=== PATIENT | male | born 1940 | race Caucasian/White ===

== ENCOUNTER → 2016-08-18 | Outpatient (CLI) | payer OTHER ==
[~2016-08-18] MED LIST: ACETAMINOPHEN325 M1 PO; ADULT LOW DOSE81 MG PO; ALLOPURINOL 10100 M1 PO; AMIODARONE; AMLODIPINE BESY10 MG PO; ASPIRIN325 PO; CEPHALEXIN 500500 M1 PO; CEPHALEXIN 500500 M2 PO; CEPHALEXIN 500500 M3 PO; CEPHALEXIN PO; CORGARD20 M1; CORGARD20 M1 PO; DAZIDOX10 MG PO; DEMADEX20 MG PO; DIGOXIN; FERREX 150150 MG PO; FUROSEMIDE; K-DUR 20 MEQ T20 MEQ PO; KLOR-CON 10 ER10 MEQ PO; KLOR-CON 1010 MEQ; KLOR-CON 1010 MEQ PO; LANOXIN 0.120.125 M1 PO; LASIX 80 MG TAB80 M1 PO; LEVOTHYROXIN0.025 MG PO; LISINOPRIL; LISINOPRIL10 MG PO; LISINOPRIL20 MG PO; LOPRESSOR 50 MG50 M1 PO; LOPRESSOR100 MG PO; LOPRESSOR50 PO; METHADONE HCL 110 M1 PO; MOBIC7.5 MG PO; MS CONTIN 30 MG30 MG PO; MS CONTIN30 MG PO; MULTIVITAMINS PO; NAPROSYN375 MG PO; OXYCODONE HCL15 MG PO; PACERONE 200 M200 M1 PO; POTASSIUM20 PO; PRILOSEC 20 MG20 MG PO; SULAR; SULAR20 MG PO; VOLTAREN GEL 1100 G2 TOP; XARELTO20 MG PO; ZESTRIL40 MG PO; ZOCOR; ZOCOR40 MG PO
== END ==
LOC: RAD 14:57
DX: J18.9 Pneumonia, unspecified organism (principal); M13.0 Polyarthritis, unspecified